=== PATIENT | male | born 1950 | race Caucasian/White ===

== ENCOUNTER 2024-12-13 12:19 | Emergency (ER) | payer OTHER ==
[~2024-12-13] VITALS: Ht 177.8 cm; Wt 68.0 kg
[2024-12-13] MEDS ORDERED: Midazolam HCL 1 MG/ML 5MLVIAL ONE (12:27)
[2024-12-13 12:59] LABS: Chloride (POC) 100 mmol/L (98-108); Creatinine (POC) 2.2 mg/dL (0.8-1.3); Glucose (ISTAT POC) 187 mg/dL (70-99); Hemoglobin (POC) 9.2 g/dL (13.5-17.5); Sodium (POC) 131 mmol/L (135-148); Total CO2 (POC) 17 mmol/L (21-32)
[2024-12-13 13:04] LABS: Bicarbonate Venous 18.5 mmol/L (24.0-30.0); PCO2 Venous 35.2 mmHg (38-42); pH Blood Venous 7.32 (7.34-7.37)
[2024-12-13] MEDS ORDERED: Piperacillin/Tazobactam Sod 3.375 GM in NS 100 ML IV ONE (13:05)
[2024-12-13] MEDS ORDERED: Vancomycin HCL 2,000 MG in NS 520 ML IV ONE (13:05)
[2024-12-13 13:07] LABS: BASOPHILS ABSOLUTE AUTO 0.02 K/mm3 (0.00-0.23); BASOPHILS PERCENT AUTO 0 % (0-2); EOSINOPHILS PERCENT AUTO 0 % (0-6); Hematocrit 25.8 % (37.0-53.0); Hemoglobin 8.6 g/dL (13.5-17.5); IMMATURE GRAN ABSOLUTE AUTO 0.14 K/mm3 (0.00-0.10); IMMATURE GRAN PERCENT AUTO 1 % (0-1); LYMPHOCYTES ABSOLUTE AUTO 1.26 K/mm3 (0.84-5.20); LYMPHOCYTES PERCENT AUTO 6 % (21-46); MONOCYTES ABSOLUTE AUTO 1.95 K/mm3 (0.16-1.47); MONOCYTES PERCENT AUTO 10 % (4-13); Mean Corpuscular HGB 33.3 pg (26.0-34.0); Mean Corpuscular HGB Conc 33.3 g/dL (31.5-36.5); Mean Corpuscular Volume 100 fL (80-100); Mean Platelet Volume 9.5 fL (9.1-12.4); NEUTROPHILS ABSOLUTE AUTO 16.37 K/mm3 (1.96-9.15); NEUTROPHILS PERCENT AUTO 83 % (41-73); Platelet Count 247 K/mm3 (150-400); RDW Coefficient Variation 14.6 % (11.7-14.2); RDW Standard Deviation 52.9 fL (35.1-46.3); Red Blood Cell Count 2.58 M/mm3 (4.30-5.90); White Blood Cell Count 19.74 K/mm3 (4.00-11.30)
[2024-12-13] MEDS ORDERED: fentaNYL citrate 1,000 MCG in NS 80 ML IV SCH (13:10)
[2024-12-13] MEDS ORDERED: Midazolam HCL 50 MG in NS 40 ML IV PRN (13:10)
[2024-12-13 13:25] LABS: International Normalized Ratio 0.98; Prothrombin Time Results 10.5 Sec (9.7-11.5)
[2024-12-13 13:30] LABS: Albumin, Blood 2.9 g/dL (3.4-5.0); Albumin/Globulin Ratio 1.1 (0.8-1.8); Bilirubin, Total 0.7 mg/dL (0.1-1.0); Bun/Creatinine Ratio 28.9 (12.0-20.0); Calcium, Blood 8.9 mg/dL (8.5-10.1); Creatinine, Blood 1.73 mg/dL (0.60-1.20); Free Thyroxine 1.18 ng/dL (0.70-1.60); Globulin, Blood 2.7 g/dL (2.2-4.0); Potassium, Blood 4.2 mmol/L (3.5-5.5); Thyroid Stimulating Hormone 1.15 uIU/mL (0.360-4.800); Total Protein, Blood 5.6 g/dL (6.4-8.2); Triiodothyronine, Free 1.91 pg/mL (2.18-3.98)
[2024-12-13] MEDS ORDERED: Esmolol HCL 2500mg/250ml Prema 250 ML IV SCH (13:30)
[2024-12-13] MEDS ORDERED: Phenylephrine HCl in 0.9% NaCl 250 ML IV SCH (13:35)
[2024-12-13] MEDS ORDERED: Lactated Ringer's 1,000 ML IV ONE (13:38)
[2024-12-13] MEDS ORDERED: Esmolol HCL 10 MG/ML 10ML VIAL IV ONE (14:00)
[2024-12-13] MEDS ORDERED: FentaNYL Citrate 50 MCG/ML 2 ML Injection ONE (14:10)
[2024-12-13 14:38] LABS: Calcium, Ionized (POC) 1.11 mmol/L (1.10-1.46); Chloride (POC) 104 mmol/L (98-108); Creatinine (POC) 2.2 mg/dL (0.8-1.3); Glucose (ISTAT POC) 160 mg/dL (70-99); Hemoglobin (POC) 6.8 g/dL (13.5-17.5); Potassium (POC) 4.8 mmol/L (3.5-5.5); Sodium (POC) 133 mmol/L (135-148); Total CO2 (POC) 16 mmol/L (21-32)
--- NOTE | 2024-12-13 17:00 | NUR ---
PALLIATIVE CARE VISIT: CALL RECEIVED FROM RN TO COME TO ER ROOM 10 DUE TO OF PATIENT IN EMOTIONAL DISTRESS. UPON ARRIVAL PT IS SITTING OUTSIDE PATIENT ROOM WHILE PATIENT IS BEING INTUBATED. IS CRYING. PROVIDED EMOTIONAL SUPPORT AND STAYED WITH DONALD. SISTER OF DONALD ARRIVED SHORTLY AFTER. [place] AND DONALD MOVED TO A QUIETER MORE PRIVATE AREA. ALLOWED PT TO EXPRESS HER EMOTIONS AND RECOUNT THE EVENTS LEADING UP TO ER VISIT. DR. ROBBINS SPOKE TO CONCERNING CODE STATUS AND ULTIMATELY DECIDED PT WOULD NOT WANT CPR AND SO SHE CHOSE DNR STATUS. ONCE PT WAS INTUBATED ESCORTED FAMILY TO BE WITH PT AND STAYED WITH FAMILY. PATIENT VITALS UNSTABLE. PT HEART EVENTUALLY DID STOP. DECLINED RECREATIONAL THERAPIST CARE STATING HER AND HER WERE NOT SHINTO. ALLOWED TO SAY GOODBYES. OFFERED TO CALL FAMILY FOR ANDSHE DECLINED THE OFFER. CHOSE [facility]. 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 PROVIDED CONDOLENCES AND AND SISTER LEFT. PT BELONGINGS WERE SENT WITH .
[2024-12-13] MEDS ORDERED: Phenylephrine HCl 100 MCG/ML-NS 10MLSYR (1MG/10ML) IV ONE (17:08)
[2024-12-13] MEDS ORDERED: Rocuronium Bromide 10 MG/ML 5ML Injection IV ONE (17:08)
[2024-12-13] MEDS ORDERED: Etomidate 2MG / ML 10ML Vial IV ONE (17:08)
[2024-12-13] MEDS ORDERED: DOPamine 400 MG/Dextrose 250 ML Bag IV ONE (21:56)
[2024-12-13] MEDS ORDERED: EPINEPhrine HCl 0.1 MG/ML 10ML SYR IV ONE (21:56)
== END 2024-12-13 18:24 ==
LOC: ER 12:19
PROVIDERS: Student in an Organized Health Care Education/Training Program
DX: I46.9 Cardiac arrest, cause unspecified (principal); R57.9 Shock, unspecified; I71.00 Dissection of unspecified site of aorta
CPT/HCPCS: 31500; 36415; 51702; 71045; 80047; 80053; 82140; 82803; 82947; 83605; 83880; 84439; 84443; 84481; 84484; 85014; 85025; 85610; 93005; 93010; 94002; 96365-59; 96367-59; 96375-59; 99285-25; J1265; J2250; J2371; J3010; J3370; J7040; J7060; J7120